=== PATIENT | female | born 1995 | race African-American/Black ===

== ENCOUNTER 2018-11-29 05:14 | Emergency (ER) | payer OTHER ==
[~2018-11-29] VITALS: Ht 167.6 cm; Wt 106.1 kg
[2018-11-29] MEDS ORDERED: HYDROCODONE-ACE15 ML PO (06:26)
[2018-11-29 07:08] VITALS: BP 118/71
--- NOTE | 2018-11-29 17:27 | EKG ---
[place] [address] [facility] [place] [address] ELECTROCARDIOGRAM REPORT Name: KRISTI FISHER Room #: DEP [facility]AMPUSKrys#: [id number] Admission: 11/29/18 Attend Phys: Discharge: 11/29/18 Date of : [birth year] Report #: [id number] THIS REPORT FOR: //name// [facility] ED Test Date: 2018-11-29 Test Time: 05:20:27 Pat Name: KRISTI FISHER Department: Room: Gender: F [employer] Director: DIONICIO : 1995 Requested By: Jem Escobar Order Number: [id number] MD: Fabián Turner Measurements Intervals [place] Rate: 90 P: 47 UT: 154 QRS: 36 QRSD: 85 T: 30 QT: 349 QTc: 427 Interpretive Statements Sinus rhythm Normal tracing No previous ECG available for comparison Electronically Signed On 11-29-2018 17:27:41 CDT by Fabián Turner [email or web address] <ELECTRONICALLY SIGNED> By: Fabián Turner MD, [facility] 11/29/18 1727 0520 0520 Fabián Turner MD, FACC /EPI
== END 2018-11-29 07:08 | disposition home or self-care (01) ==
LOC: ER 05:14
DX: J02.8 Acute pharyngitis due to other specified organisms (principal); J45.909 Unspecified asthma, uncomplicated; F17.210 Nicotine dependence, cigarettes, uncomplicated